=== PATIENT | male | born 1955 | race Caucasian/White ===

== ENCOUNTER 2022-01-14 14:01 | Outpatient (RCR) | payer MEDICARE, SELFPAY | END 2022-03-19 14:01 | disposition home or self-care (01) | LOC: HO.WCC 14:01 | PROVIDERS: PCP Internal Medicine; Visit Provider Surgery | DX: E11.621 Type 2 diabetes mellitus with foot ulcer (principal); L97.522 Non-pressure chronic ulcer of other part of left foot with fat layer exposed; E11.40 Type 2 diabetes mellitus with diabetic neuropathy, unspecified; I10 Essential (primary) hypertension; L30.8 Other specified dermatitis; Z87.891 Personal history of nicotine dependence | CPT/HCPCS: 11042; 15275; 29445; 99212; Q4187 ==